=== PATIENT | male | born 1980 | race Caucasian/White ===

== ENCOUNTER → 2017-03-28 | Day surgery (SDC) | payer BC ==
--- NOTE | 2017-03-29 18:56 | PATH ---
Cytology Non-Gynecological Report Patient Name: MARTIR CABRALES [facility] [place]. Rec. #: [id number] /Age/Gender: 1980 (Age: 36) / M Account: [id number] Location: [facility] Taken: 03/28/2017 Received: 03/28/2017 Reported: 03/29/2017 Physicians: Bora Gong M.D. Specimen(s) Received LYMPH NODE FNA Clinical History Left lymph node, angle of mandible, 1.35 x 0.44 x 0.71 cm Final Diagnosis LYMPH NODE, LEFT, ANGLE OF MANDIBLE, FINE NEEDLE ASPIRATION: SATISFACTORY FOR EVALUATION. NEGATIVE FOR MALIGNANT CELLS. SCANT HETEROGENOUS LYMPHOCYTES WITH PROMINENT CRUSH AND AIR DRYING ARTIFACT. SEE COMMENT. COMMENT: The specimen is limited by scant lymphoid cellularity and prominent crush and air drying artifact. Available material for review shows scant heterogenous lymphocytes. No definitive epithelial cells are identified. Suggest clinical/radiological correlation. If there is persistent clinical concern for a lymphoproliferative disorder/neoplasm, suggest further workup including flow cytometry, as warranted. Electronically Signed Liv Kerns M.D. Gross Description Received are eight direct smears, four of which are air-dried and Diff-Quik stained, and four of which are alcohol fixed and Pap stained. Also received is 20 ml of bloody formalin from which one cellblock is prepared.
== END | disposition home or self-care (01) ==
LOC: JRADIR 12:31
PROVIDERS: ATTEND Otolaryngology Facial Plastic Surgery
PROC: 07923ZX Drainage of Left Neck Lymphatic, Percutaneous Approach, Diagnostic (ICD-10-PCS; principal; 2017-03-28)
PROC: BW4FZZZ Ultrasonography of Neck (ICD-10-PCS; 2017-03-28)
DX: D36.0 Benign neoplasm of lymph nodes (principal)
CPT/HCPCS: 10022; 76942; 88173; 88305-TC

== ENCOUNTER 2017-05-07 14:45 | Emergency (ER) | payer BC ==
[2017-05-07 14:54] VITALS: BMI 29.0
--- NOTE | 2017-05-07 14:58 | PDOC ---
History of Present Illness - General History Source: Patient Exam Limitations: No Limitations - History of Present Illness Initial Comments: 05/07/17 16:05 36 y.o male with no significant past medical history, who presents to the emergency room complaining of a gradual onset of abdominal pain, nausea, and vomiting. Initially, the abdominal pain was diffuse but has progressively worsened throughout the day and has localized to the RLQ. The patient reports that he had right lower back pain last night, but believes that he pulled a muscle while sleeping. He had 1 episode of nonbilious, nonbloody vomiting this morning. Denies dysuria, hematuria, or any other urinary symptoms. Denies fever , chills. Denies sick contact. Denies recent travel. Allergies: NKDA Social hx: No tobacco use. No drug use. No alcohol use. PCP: Dr. Gerardo Elizabeth <Aviva Mccartney - Last Filed: 05/07/17 16:47> <Yoan Land - Last Filed: 05/10/17 16:51> - General Chief Complaint: Pain Stated Complaint: ABD PAIN, NAUSEA Time Seen by Provider: 05/07/17 14:57 Past History <Aviva Mccartney - Last Filed: 05/07/17 16:47> - Past Medical History COPD: No Other medical history: SEASONAL ALLERGIES - Surgical History Abdominal Surgery: Yes (r hernia repair) - Immunization History Immunization Up to Date: Yes - Suicide/Smoking/Psychosocial Hx Smoking Status: No Smoking History: Never smoked Have you smoked in the past 12 months: No Number of Cigarettes Smoked Daily: 0 Hx Alcohol Use: No Drug/Substance Use Hx: No <Yoan Land - Last Filed: 05/10/17 16:51> - Past Medical History Allergies/Adverse Reactions: Allergies Allergy/AdvReac Type Severity Reaction Status Date / Time No Known Allergies Allergy Verified 05/07/17 14:48 Home Medications: Ambulatory Orders No Home Medications 0 dose .ROUTE UTDICT 11/19/13 Ampicillin Trihydrate 500 mg PO BID #14 capsule 05/07/17 Oxycodone HCl/Acetaminophen [Percocet 5-325 mg Tablet] 1 - 2 tab PO Q6H #12 tab MDD 6 05/07/17 Review of Systems - Review of Systems Able to Perform ROS?: Yes Comments:: 05/07/17 16:06 A complete review of 10 out of 10 review of systems is taken and is negative apart from what is previously mentioned below and in the HPI. <Aviva Mccartney - Last Filed: 05/07/17 16:47> *Physical Exam - Vital Signs Last Vital Signs Temp Pulse Resp BP Pulse Ox 98.2 F 103 H 20 157/101 100 05/07/17 14:45 05/07/17 14:45 05/07/17 14:45 05/07/17 14:45 05/07/17 14:45 - Physical Exam Comments: 05/07/17 16:06 Vitals: Triage Vital signs reviewed General Appearance: no acute distress, well nourished well developed Eyes: Pupils equal reactive round, extraocular movement intact Cardiac: Regular rate and rhythym, no murmurs, no rubs, no gallops Lungs: Clear to auscultation bilateral, good air movement bilaterally Abdomen: +RLQ tenderness to palpation with rebound. Soft, non distended, normal bowel sounds Genitourinary:No testicular findings. Skin: Warm and dry, no rashes or lesions, no rash, no petechiae Neuro: AOX3; Cranial Nerves 2-12 grossly intact. Psych: Normal mood, normal affect <Aviva Mccartney - Last Filed: 05/07/17 16:47> - Vital Signs Last Vital Signs Temp Pulse Resp BP Pulse Ox 98.2 F 103 H 20 157/101 100 05/07/17 14:45 05/07/17 14:45 05/07/17 14:45 05/07/17 14:45 05/07/17 14:45 <Yoan Land - Last Filed: 05/10/17 16:51> Heart Score/ECG Review #1 05/07/17 16:47 EKG performed at 16:27 demonstrates rate of 97, rhythm of sinus, axis equal to normal .no T wave inversions, no ST elevations <Aviva Mccartney - Last Filed: 05/07/17 16:47> ED Treatment Course - LABORATORY CBC & Chemistry Diagram: 05/07/17 15:45 05/07/17 15:45 <Aviva Mccartney - Last Filed: 05/07/17 16:47> - LABORATORY CBC & Chemistry Diagram: 05/07/17 15:45 05/07/17 15:45 <Yoan Land - Last Filed: 05/10/17 16:51> Medical Decision Making - Medical Decision Making 05/07/17 18:41 Right lower quadrant abdominal pain. We'll check labs CAT scan and reassess Dr. Linda Ryan to follow up CT and reasses <Yoan Land - Last Filed: 05/10/17 16:51> *DC/Admit/Observation/Transfer - Attestations Scribe Attestion: 05/07/17 16:08 Documentation prepared by EDILBERTO Sunshine, acting as medical office coordinator for Yoan Land MD. <Aviva Mccartney - Last Filed: 05/07/17 16:47> <Yoan Land - Last Filed: 05/10/17 16:51> Diagnosis at time of Disposition: Enteritis - Discharge Dispostion Disposition: HOME Condition at time of disposition: Stable - Prescriptions Prescriptions: Ampicillin Trihydrate 500 mg PO BID #14 capsule Oxycodone HCl/Acetaminophen [Percocet 5-325 mg Tablet] 1 - 2 tab PO Q6H #12 tab MDD 6 - Referrals Referrals: Enrique Elizabeth MD [Primary Care Provider] - - Patient Instructions Additional Instructions: For the pain you can take Percocet one tablet as often as every 6 hours if needed. Note the Percocet may make you constipated. It will also make you drowsy so you cannot drive or do anything that requires your concentration if you're taking it. For the enteritis take ampicillin 1 tablet twice a day for 7 days. You should be better in 48 hours if you're not better, follow-up with your primary care doctor. Or you can return to the emergency room. Also return for any fevers over 101, vomiting and unable to keep anything down resulting in dehydration, or worsening symptoms. Return to the emergency department immediately with ANY new, persistent or worsening symptoms. Continue any medications as previously prescribed by your physician. You should follow up with your primary doctor as soon as possible regarding today's emergency department visit. Thank you for coming to the Emergency Department today for your care. It was a pleasure to see you today. Please note that your evaluation is INCOMPLETE until you follow-up with your doctor. - Post Discharge Activity
[2017-05-07] MEDS ORDERED: SODIUM CHLORIDE 0.9% 1000 ML INFUS.BAG IV PRN (15:07)
[2017-05-07] MEDS ORDERED: morphine CARPU-JECT 4 MG/1 ML DISP.SYRIN IVPUSH ONE ×2 (15:34→17:23)
[2017-05-07] MEDS ORDERED: morphine SULFATE 4 MG/ML VIAL ONE ×2 (15:44→17:24)
[2017-05-07 16:17] LABS: MEAN CELL VOLUME 83.2 fl (80-96)
[2017-05-07 16:25] LABS: MCH 28.5 pg (25.7-33.7); MCHC 33.9 g/dl (32.0-35.9); MEAN PLT VOLUME 11.5 fl (7.5-11.1); PLATELET COUNT 161 K/MM3 (134-434); RDW 12.6 % (11.9-15.9); WHITE BLOOD COUNT 12.7 K/mm3 (4.0-10.8)
[2017-05-07 16:36] LABS: ACTIVATED PTT 26.1 SECONDS (24.0-38.9)
[2017-05-07 16:40] LABS: INR 1.01 (0.82-1.09); PROTHROMBIN TIME (PATIENT) 11.3 SEC (10.2-13.0)
[2017-05-07 16:59] LABS: URINE APPEARANCE Clear; URINE BILIRUBIN Negative (NEGATIVE); URINE BLOOD Negative (NEGATIVE); URINE GLUCOSE (UA) Negative (NEGATIVE); URINE KETONE 1+ (NEGATIVE); URINE LEUK ESTERASE Negative (NEGATIVE); URINE NITRITE Negative (NEGATIVE); URINE PROTEIN Negative (NEGATIVE); URINE UROBILINOGEN 0.2 (0.2-1.0)
[2017-05-07 17:06] LABS: URINE COLOR YELLOW
[2017-05-07 17:43] LABS: CREATININE 0.9 mg/dl (0.6-1.3); GLUCOSE,RANDOM 90 mg/dl (74-106)
[2017-05-07 17:44] LABS: ALBUMIN 4.4 g/dl (3.5-5.0); ALK PHOS 58 U/L (32-92); ANION GAP 10 (8-16); BILIRUBIN,TOTAL 1.1 mg/dl (0.2-1.0); CALCIUM 9.6 mg/dl (8.4-10.2); CO2 26 mmol/L (22-28); SGOT/AST 26 U/L (10-42); SGPT/ALT 27 U/L (10-40); TOT PROT 7.6 g/dl (6.4-8.3)
[2017-05-07] MEDS ORDERED: AMPICILLIN - 1 GM in SODIUM CHLORIDE 100 ML IVPB ONE (19:20)
--- NOTE | 2017-05-07 19:31 | PDOC ---
*Physical Exam - Vital Signs Last Vital Signs Temp Pulse Resp BP Pulse Ox 98.2 F 103 H 20 157/101 100 05/07/17 14:45 05/07/17 14:45 05/07/17 14:45 05/07/17 14:45 05/07/17 14:45 ED Treatment Course - LABORATORY CBC & Chemistry Diagram: 05/07/17 15:45 05/07/17 15:45 - ADDITIONAL ORDERS Additional order review: Laboratory Results 05/07/17 05/07/17 05/07/17 16:50 16:24 16:10 PT with INR INR PTT (Actin FS) Sodium Potassium Chloride Carbon Dioxide Anion Gap BUN Creatinine Creat Clearance w eGFR Random Glucose Lactic Acid 1.7 Calcium Total Bilirubin AST ALT Alkaline Phosphatase Total Protein Albumin Urine Color Yellow Urine Appearance Clear Urine pH 8.0 Ur Specific [place] 1.015 Urine Protein Negative Urine Glucose (UA) Negative Urine Ketones 1+ H Urine Blood Negative Urine Nitrite Negative Urine Bilirubin Negative Urine Urobilinogen 0.2 Ur Leukocyte Esterase Negative Blood Type O NEGATIVE 05/07/17 05/07/17 15:45 15:45 PT with INR 11.3 INR 1.01 PTT (Actin FS) 26.1 L Sodium 136 Potassium 3.9 Chloride 100 Carbon Dioxide 26 Anion Gap 10 BUN 21 H Creatinine 0.9 D Creat Clearance w eGFR > 60 Random Glucose 90 Lactic Acid Calcium 9.6 Total Bilirubin 1.1 H D AST 26 ALT 27 Alkaline Phosphatase 58 Total Protein 7.6 Albumin 4.4 Urine Color Urine Appearance Urine pH Ur Specific [place] Urine Protein Urine Glucose (UA) Urine Ketones Urine Blood Urine Nitrite Urine Bilirubin Urine Urobilinogen Ur Leukocyte Esterase Blood Type 05/07/17 15:45 RBC 5.62 H MCV 83.2 MCHC 33.9 RDW 12.6 MPV 11.5 H Neutrophils % 92.0 H Lymphocytes % 5.0 L Monocytes % 3.0 L - Medications Given in the ED: ED Medications Discontinued Medications Generic Name Dose Route Start Last Admin Trade Name Freq PRN Reason Stop Dose Admin Morphine Sulfate 4 mg 05/07/17 15:34 05/07/17 16:00 Morphine Injection - IVPUSH 05/07/17 15:35 4 mg ONCE ONE Administration Morphine Sulfate 4 mg 05/07/17 17:23 05/07/17 17:28 Morphine Injection - IVPUSH 05/07/17 17:24 4 mg ONCE ONE Administration Progress Note - Progress Note Progress Note: This is a 36-year-old male whose care was transferred to me from Dr. Land at 1900 hrs. Patient comes in complaining of abdominal pain with some nausea but no vomiting. Patient had a workup that does show a mildly elevated white count with left shift. Otherwise patient is afebrile. Patient was complaining of a moderate amount of pain for which she was medicated and since he is now comfortable. Patient's CAT scan is pending. 19:30 Patient's CAT scan shows enteritis. Otherwise is negative for acute appendicitis or renal stones. Given the fact the patient does have moderate amount of pain, a white count and left shift I will give patient antibiotics ampicillin 1 g IV and then a short course of antibiotics orally at home. Patient does have a primary care doctor who called the ED and I spoke with him on the phone regarding the patient's lab reports CAT scan and the clinical presentation. He will follow-up with the patient tomorrow and the agrees with the treatment and plan. He also will have the patient follow up with a GI doctor if he is not improved. 20:00 Reexamination of the patient's abdomen patient's abdomen is soft there are normal bowel sounds, there is some very mild tenderness in the right lower quadrant area. However there is no guarding or rebound at this time. Patient on exam says that his abdomen is less tender than it was earlier when he came in. *DC/Admit/Observation/Transfer Diagnosis at time of Disposition: Enteritis - Discharge Dispostion Disposition: HOME Condition at time of disposition: Stable Admit: No - Prescriptions Prescriptions: Ampicillin Trihydrate 500 mg PO BID #14 capsule Oxycodone HCl/Acetaminophen [Percocet 5-325 mg Tablet] 1 - 2 tab PO Q6H #12 tab MDD 6 - Referrals Referrals: Enrique Elizabeth MD [Primary Care Provider] - - Patient Instructions Additional Instructions: For the pain you can take Percocet one tablet as often as every 6 hours if needed. Note the Percocet may make you constipated. It will also make you drowsy so you cannot drive or do anything that requires your concentration if you're taking it. For the enteritis take ampicillin 1 tablet twice a day for 7 days. You should be better in 48 hours if you're not better, follow-up with your primary care doctor. Or you can return to the emergency room. Also return for any fevers over 101, vomiting and unable to keep anything down resulting in dehydration, or worsening symptoms. Return to the emergency department immediately with ANY new, persistent or worsening symptoms. Continue any medications as previously prescribed by your physician. You should follow up with your primary doctor as soon as possible regarding today's emergency department visit. Thank you for coming to the Emergency Department today for your care. It was a pleasure to see you today. Please note that your evaluation is INCOMPLETE until you follow-up with your doctor. - Post Discharge Activity
[2017-05-07] MEDS ORDERED: AMPICILLIN SODIUM 1 GM VIAL ONE (19:34)
[2017-05-07 20:08] VITALS: BP 110/76; PULSE 98; TEMP 98.8
--- NOTE | 2017-05-08 11:39 | EKG ---
Test Reason : Blood Pressure : / mmHG Vent. Rate : 097 BPM Atrial Rate : 097 BPM P-R Int : 162 ms QRS Dur : 084 ms QT Int : 356 ms P-R-T Axes : 046 -06 007 degrees QTc Int : 452 ms NORMAL SINUS RHYTHM POSSIBLE LEFT ATRIAL ENLARGEMENT BORDERLINE ECG NO PREVIOUS ECGS AVAILABLE Confirmed by SHAMEKA BUNN MD ([id number]) on 05/08/2017 11:38:44 AM Referred By: DR WAGONER Confirmed By:SHAMEKA BUNN MD
== END 2017-05-07 20:40 | disposition home or self-care (01) ==
LOC: FER 14:45
PROC: 3E03329 Introduction of Other Anti-infective into Peripheral Vein, Percutaneous Approach (ICD-10-PCS; principal; 2017-05-07)
PROC: 3E033NZ Introduction of Analgesics, Hypnotics, Sedatives into Peripheral Vein, Percutaneous Approach (ICD-10-PCS; 2017-05-07)
DX: K52.9 Noninfective gastroenteritis and colitis, unspecified (principal)
CPT/HCPCS: 36415; 71010-TC; 74177-TC; 80053; 81003; 83605; 85025; 85610; 85730; 86140; 86850; 86900; 86901; 87040; 87086; 93005; 99285-25

== ENCOUNTER 2019-05-26 15:22 | Emergency (ER) | payer BC, OTHER ==
--- NOTE | 2019-05-26 15:51 | PDOC ---
Rapid Medical Evaluation Time Seen by Provider: 05/26/19 15:47 Medical Evaluation: Allergies Allergy/AdvReac Type Severity Reaction Status Date / Time No Known Allergies Allergy Verified 05/07/17 14:48 05/26/19 15:47 Pt c/o: lac to left 3rd digit sustained while using a knife at work, unknown last tdap Pt on brief exam:1.5 cm filet lac to left 3rd digit over DIP joint dorsally Pt ordered for: tdap Pt to proceed to the ED Discharge Disposition - Diagnosis Laceration of finger Qualifiers: Encounter type: initial encounter Finger: middle finger Damage to nail status: without damage Foreign body presence: without foreign body Laterality: left Qualified Code(s): S61.213A - Laceration without foreign body of left middle finger without damage to nail, initial encounter - Discharge Dispostion Disposition: HOME Condition at time of disposition: Good - Referrals - Patient Instructions Printed Discharge Instructions: DI for Minor Laceration Additional Instructions: You are given a tetanus vaccine today Keep wound clean and dry. Remove compression dressing tomorrow am when bleeding should have subsided. Keep loose dressing on site until skin starts to crust and scab over Return for any signs of infection as discussed today - Post Discharge Activity
[2019-05-26 15:53] VITALS: BP 143/81; PULSE 69; TEMP 97.8; BMI 29.0
[2019-05-26] MEDS ORDERED: DIPHTH,PERTUSS(ACELL),TET 0.5 ML DISP.SYRIN IM ONE ×2 (15:59→16:02)
--- NOTE | 2019-05-26 16:08 | PDOC ---
History of Present Illness - General Chief Complaint: Injury Stated Complaint: LT. HAND LAC/ YFD Time Seen by Provider: 05/26/19 15:47 History Source: Patient - History of Present Illness Timing/Duration: reports: this afternoon Severity: Yes: mild Location: reports: hands Past History - Past Medical History Allergies/Adverse Reactions: Allergies Allergy/AdvReac Type Severity Reaction Status Date / Time No Known Allergies Allergy Verified 05/07/17 14:48 Home Medications: Ambulatory Orders No Home Medications 0 dose .ROUTE UTDICT 11/19/13 Ampicillin Trihydrate 500 mg PO BID #14 capsule 05/07/17 Oxycodone HCl/Acetaminophen [Percocet 5-325 mg Tablet] 1 - 2 tab PO Q6H #12 tab MDD 6 05/07/17 COPD: No - Surgical History Abdominal Surgery: Yes (r hernia repair) - Immunization History Immunization Up to Date: Yes - Psycho Social/Smoking Cessation Hx Smoking Status: No Smoking History: Never smoked Have you smoked in the past 12 months: No Number of Cigarettes Smoked Daily: 0 Information on smoking cessation initiated: No Hx Alcohol Use: No Drug/Substance Use Hx: No Review of Systems - Review of Systems Integumentary: Yes: Other (laceration) Neurological: No: Numbness, Tingling *Physical Exam - Vital Signs Last Vital Signs Temp Pulse Resp BP Pulse Ox 97.8 F 69 16 143/81 98 05/26/19 15:48 05/26/19 15:48 05/26/19 15:48 05/26/19 15:48 05/26/19 15:48 - Physical Exam General Appearance: Yes: Appropriately Dressed. No: Apparent Distress HEENT: positive: Normal Voice Neck: positive: Supple Respiratory/Chest: negative: Respiratory Distress Integumentary: positive: Dry, Warm, Other (4-5mm cutaneous lac to volar aspect of distal phalanx of L 3rd digit w/ active bleeding, sensation intact, FROMI) Neurologic: positive: Alert, Normal Mood/Affect ED Treatment Course - Medications Given in the ED: ED Medications Discontinued Medications Generic Name Dose Route Start Last Admin Trade Name Freq PRN Reason Stop Dose Admin Diphtheria/Tetanus/Acell Pertussis 0.5 ml 05/26/19 15:59 05/26/19 16:02 Boostrix - IM 05/26/19 16:00 0.5 ml .ONCE ONE Administration Medical Decision Making - Medical Decision Making 05/26/19 16:05 38-year-old male no significant history 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 States he has small wound to left middle finger that has been bleeding persistently. No sensory changes. Needs tetanus vaccine see exam Minor lac -no need for repair -local wound care/dressing in ER -tetanus updated -to return as needed 05/26/19 16:06 Discharge - Discharge Information Problems reviewed: Yes Clinical Impression/Diagnosis: Laceration of finger Qualifiers: Encounter type: initial encounter Finger: middle finger Damage to nail status: without damage Foreign body presence: without foreign body Laterality: left Qualified Code(s): S61.213A - Laceration without foreign body of left middle finger without damage to nail, initial encounter Condition: Good Disposition: HOME - Follow up/Referral - Patient Discharge Instructions Patient Printed Discharge Instructions: DI for Minor Laceration Additional Instructions: You are given a tetanus vaccine today Keep wound clean and dry. Remove compression dressing tomorrow am when bleeding should have subsided. Keep loose dressing on site until skin starts to crust and scab over Return for any signs of infection as discussed today - Post Discharge Activity
== END 2019-05-26 16:07 | disposition home or self-care (01) ==
LOC: JERFT 15:22
PROC: 3E0234Z Introduction of Serum, Toxoid and Vaccine into Muscle, Percutaneous Approach (ICD-10-PCS; principal; 2019-05-26)
DX: S61.213A Laceration without foreign body of left middle finger without damage to nail, initial encounter (principal); W26.0XXA Contact with knife, initial encounter; Y93.89 Activity, other specified; Y92.89 Other specified places as the place of occurrence of the external cause; Y99.0 Civilian activity done for income or pay
CPT/HCPCS: 90715; 99281-25

== ENCOUNTER 2020-04-23 11:58 | Emergency (ER) | payer BC | END 2020-04-23 12:19 | disposition home or self-care (01) | LOC: JVIRT 11:58 | DX: Z11.59 Encounter for screening for other viral diseases (principal) | CPT/HCPCS: C9803; Q3014-GT; U0003 ==

== ENCOUNTER 2021-08-14 11:55 | Emergency (ER) | payer BC ==
[2021-08-14 12:03] VITALS: BP 125/80; PULSE 94; TEMP 98.2; BMI 29.0
[2021-08-14] MEDS ORDERED: SODIUM CHLORIDE 0.9% 500 ML INFUS.BAG IV ONE (12:13)
[2021-08-14] MEDS ORDERED: FAMOTIDINE 20 MG/50 ML IVPB 20 MG/50 ML MG IVPB ONE ×2 (12:13→12:15)
[2021-08-14] MEDS ORDERED: MAG HYDROX/AL HYDROX/SIMETH 30 ML UNIT-DOSE CUP PO ONE (12:14)
[2021-08-14] MEDS ORDERED: MAG HYDROX/AL HYDROX/SIMETH 30 ML UNIT-DOSE CUP ONE (12:15)
[2021-08-14] MEDS ORDERED: ACETAMINOPHEN 1000 MG/100 ML BAG IVPB ONE (12:15)
[2021-08-14] MEDS ORDERED: morphine CARPU-JECT 4 MG/1 ML DISP.SYRIN IVPUSH ONE (12:29)
[2021-08-14] MEDS ORDERED: ONDANSETRON 4 MG/2 ML VIAL IVPUSH ONE (12:30)
[2021-08-14] MEDS ORDERED: morphine SULFATE 4 MG/ML VIAL ONE (12:31)
[2021-08-14] MEDS ORDERED: ONDANSETRON 4 MG/2 ML VIAL ONE (12:31)
[2021-08-14 12:59] LABS: ALBUMIN 4.2 g/dl (3.4-5.0); BILIRUBIN,TOTAL 1.2 mg/dl (0.2-1); CALCIUM 9.3 mg/dl (8.5-10); CREATININE 0.9 mg/dl (0.55-1.3); TOT PROT 7.3 g/dl (6.4-8.2)
[2021-08-14 14:04] LABS: HEMATOCRIT 44.2 % (35.4-49); HEMOGLOBIN 14.8 GM/dL (11.7-16.9); MCH 28.1 pg (25.7-33.7); MCHC 33.5 g/dl (32.0-35.9); MEAN PLT VOLUME 9.8 fl (7.5-11.1); PLATELET COUNT 172 10^3/uL (134-434); RBC 5.27 M/mm3 (4.00-5.60); RDW 14.1 % (11.9-15.9); WHITE BLOOD COUNT 11.7 K/mm3 (4.0-10.0)
[2021-08-14 14:35] LABS: ANISOCYTOSIS 1+; MACROCYTOSIS 1+
== END 2021-08-14 15:00 | disposition home or self-care (01) ==
LOC: FER 11:55
PROC: 3E033GC Introduction of Other Therapeutic Substance into Peripheral Vein, Percutaneous Approach (ICD-10-PCS; principal; 2021-08-14)
PROC: 3E033NZ Introduction of Analgesics, Hypnotics, Sedatives into Peripheral Vein, Percutaneous Approach (ICD-10-PCS; 2021-08-14)
PROC: 3E033GC Introduction of Other Therapeutic Substance into Peripheral Vein, Percutaneous Approach (ICD-10-PCS; 2021-08-14)
DX: R10.13 Epigastric pain (principal)
CPT/HCPCS: 36415; 74177-TC; 80053; 83690; 85025; 93005; 99285-25; Q9967

== ENCOUNTER 2021-08-31 22:45 | Emergency (ER) | payer OTHER, BC ==
[2021-08-31 23:05] VITALS: BP 125/87; PULSE 74; TEMP 97.9; BMI 29.0
== END 2021-08-31 23:34 | disposition home or self-care (01) ==
LOC: JER 22:45
DX: S93.402A Sprain of unspecified ligament of left ankle, initial encounter (principal); X50.0XXA Overexertion from strenuous movement or load, initial encounter; W18.42XA Slipping, tripping and stumbling without falling due to stepping into hole or opening, initial encounter
CPT/HCPCS: 73610-TC-LT-FY; 73630-TC-LT; 99283-25

== ENCOUNTER 2022-06-20 21:37 | Emergency (ER) | payer OTHER ==
[2022-06-20 21:57] VITALS: BP 128/86; PULSE 85; RESP 20; TEMP 98.2; BMI 28.7
== END 2022-06-20 23:02 | disposition left against medical advice (07) ==
LOC: JER 21:37 → JERFT 21:37
DX: S99.911A Unspecified injury of right ankle, initial encounter (principal); W10.8XXA Fall (on) (from) other stairs and steps, initial encounter
CPT/HCPCS: 99281-25